=== PATIENT | female | born 1955 | race Hispanic/Latino ===

== ENCOUNTER 2025-02-07 07:00 | Day surgery (SDC) | payer MEDICARE ==
[2025-02-07] VITALS (10 sets, daily range): BP systolic 110–141; BP diastolic 53–69; PULSE 65–78; RESP 16–19; TEMP 97.3–97.7
[~2025-02-07] VITALS: Ht 162.6 cm; Wt 68.0 kg
[2025-02-07] MEDS: 0.9%NACL 1000ML 1,000 ML IV ONE (07:35)
[2025-02-07] MEDS ORDERED: TAMO20TA4 PO (07:42)
[2025-02-07] MEDS ORDERED: LINA145C PO (07:42)
[2025-02-07] MEDS ORDERED: VALS40TA11 PO (07:42)
[2025-02-07] MEDS ORDERED: ATOR40TA69 PO (07:42)
[2025-02-07] MEDS ORDERED: ATOG60TA PO (07:42)
[2025-02-07] MEDS ORDERED: MONT-39 PO (07:42)
[2025-02-07] MEDS ORDERED: DULO30CA52 PO ×2 (07:42)
[2025-02-07] MEDS ORDERED: MELO-108 PO (07:42)
[2025-02-07] MEDS ORDERED: GABA300C PO (07:42)
[2025-02-07] MEDS ORDERED: TRAMADOL 50MG PO (07:42)
[2025-02-07] MEDS ORDERED: TIRZ7.5P SQ (07:42)
[2025-02-07] MEDS ORDERED: ACET-2743 PO (07:42)
[2025-02-07] MEDS ORDERED: MELO-106 PO (07:42)
[2025-02-07] MEDS ORDERED: OMEP40CA21 PO (07:42)
== END 2025-02-07 10:30 | disposition home or self-care (01) ==
LOC: DAH 07:00 → ENDO 07:00
PROVIDERS: ATTEND Internal Medicine Gastroenterology
DX: K74.60 Unspecified cirrhosis of liver (principal); K29.50 Unspecified chronic gastritis without bleeding; K31.89 Other diseases of stomach and duodenum; R19.7 Diarrhea, unspecified; R14.0 Abdominal distension (gaseous); K21.9 Gastro-esophageal reflux disease without esophagitis; K44.9 Diaphragmatic hernia without obstruction or gangrene; K29.30 Chronic superficial gastritis without bleeding; K59.04 Chronic idiopathic constipation; R93.89 Abnormal findings on diagnostic imaging of other specified body structures; K22.89 Other specified disease of esophagus; I10 Essential (primary) hypertension; E11.9 Type 2 diabetes mellitus without complications; E78.5 Hyperlipidemia, unspecified; Z85.3 Personal history of malignant neoplasm of breast; M19.90 Unspecified osteoarthritis, unspecified site; Z88.8 Allergy status to other drugs, medicaments and biological substances; Z86.0100 Personal history of colon polyps, unspecified; Z90.49 Acquired absence of other specified parts of digestive tract; Z90.710 Acquired absence of both cervix and uterus; Z79.899 Other long term (current) drug therapy
CPT/HCPCS: 82948 ×2; 43239; J7030; J0169; J2704; A4620; A4215; A4223; A7002; A4222; A4221; A4663; A4606; J3490